=== PATIENT | male | born 1995 | race Caucasian/White ===

== ENCOUNTER 2017-04-14 13:11 | Emergency (ER) | payer OTHER ==
[~2017-04-14] VITALS: Ht 188 cm; Wt 90.4 kg
[~2017-04-14 13:11] MED LIST: ALBU1AER9 INH; BUDESUS; CHOL100027 PO; EPIN1INJ33 IM; EPP3/2 IM; SYMIN160 INH
[2017-04-14 13:21] VITALS: TEMP 36.5; Ht 188 cm; Wt 90.4 kg
[2017-04-14] MEDS ORDERED: METH20CA PO (14:40)
[2017-04-14] MEDS ORDERED: VNTHFA/IN INH (14:40)
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
[2017-04-14 16:07] VITALS: BP 156/103; PULSE 82; O2SAT 94
--- NOTE | 2017-04-14 16:40 | DIAGNOSTIC IMAGING REPORT ---
NASAL BONES MIN 3 VIEWS CLINICAL HISTORY: 22 years-old Male presenting with Right nose trauma. TECHNIQUE: 3 views of the nasal bones were obtained. COMPARISON: None. FINDINGS: Bony nasal septum midline. Paranasal sinuses and mastoid air cells grossly clear. Bony orbits intact. Mild asymmetric synchondrosis in the right nasal bone raises concern for fracture. Left nasal bone intact. IMPRESSION: Concern for mildly displaced right nasal bone fracture. Electronically signed by: Mark Abreu M.D. 04/14/2017 4:39 PM Dictated Date/Time: 04/14/2017 4:37 PM
[2017-04-17] MEDS ORDERED: CLR10 PO (10:18)
[2017-04-17] MEDS ORDERED: VITA1TAB4 PO (10:18)
[2017-04-17] MEDS ORDERED: MULT-506 PO (10:18)
[2017-04-17] MEDS ORDERED: ALBU18002 INH (10:18)
[2017-04-17] MEDS ORDERED: [UNRECOGNIZED DRUG - OTHER] IM (10:19)
== END 2017-04-14 16:07 | disposition home or self-care (01) ==
LOC: C.EDB 13:13 → C.EDD 16:07
DX: S02.2XXA Fracture of nasal bones, initial encounter for closed fracture (principal); X58.XXXA Exposure to other specified factors, initial encounter; J45.909 Unspecified asthma, uncomplicated; Z79.899 Other long term (current) drug therapy; Z91.010 Allergy to peanuts

== ENCOUNTER → 2017-04-19 | Day surgery (SDC) | payer OTHER ==
[2017-04-17 10:20] VITALS: Ht 186.7 cm; Wt 90.9 kg
[~2017-04-19] VITALS: Ht 186.7 cm; Wt 90.9 kg
[~2017-04-19] MED LIST changes: +ALBU18002 INH; -ALBU1AER9 INH; +ATROPINE SULFATE 0.1 MG/ML 5ML SYR IV PRN; -BUDESUS; +CLR10 PO; +DEXAMETHASONE SOD INJ 4 MG/ML VIAL ONE; -EPIN1INJ33 IM; -EPP3/2 IM; +EpHEDrine SULFATE INJ 50 MG/ML AMP IV PRN; +EpINEphrine INJ 1MG/ML AMP 1 MG/ML AMP ONE; +FENTANYL CITRATE INJ 50 MCG/1 ML 2 ML VIAL IV PRN; +FENTANYL CITRATE INJ 50 MCG/1 ML 2 ML VIAL ONE; +FLUMAZENIL 0.1 MG/1 ML 10 ML VIAL IV PRN; +HYDROCODONE/ACETAMOPHEN 5/325MG TAB PO PRN; +HYDROmorphone INJ 2 MG/ML SYR/VIAL IV PRN; +LABETALOL HCL IV 5 MG/ML 20ML IV PRN; +LACTATED RINGER'S 1000ML 1,000 ML IV SCH; +LIDOCAINE 4% MPF SOAK 5 ML = 1 DOSE TOP ONE; +LIDOCAINE HCL 2% 2 ML VIAL (20MG/ML) ONE; +LIDOCAINE/EPINEPHRINE 1% INJ 50 ML VIAL ONE; +MEPERIDINE HCL 25 MG/ML CARP IV PRN; +METH20CA PO; +MIDAZOLAM HCL 1 MG/ML 2ML VIAL ONE; +MULT-506 PO; +NALOXONE HCL 0.4 MG/1 ML VIAL/CARP IV PRN; +ONDANSETRON INJ 2 MG/ML 2 ML VIAL IV PRN; +ONDANSETRON INJ 2 MG/ML 2 ML VIAL ONE; +OXYMETAZOLINE HCL 0.05% NA SPR 15 ML BTL PRN; +PHENYLEPHRINE 100MCG/ML 5ML SYR IV PRN; +PROPOFOL IV EMULSION 10 MG/ML 20 ML VIAL IV ONE; +SUCCINYLCHOLINE CHLORIDE 20 MG/ML 10 ML VIAL IV ONE; +VITA1TAB4 PO; +[UNRECOGNIZED DRUG - OTHER] IM
--- NOTE | 2017-04-19 06:40 | History & Physical Bridge - SC ---
H&P Re-Evaluation Bridge Note: I have examined the patient, reviewed the History & Physical and in the interval since the performance of the History & Physical I have noted the following changes of clinical significance: No changes noted
--- NOTE | 2017-04-19 08:45 | [facility] Operative Report ---
Operative Report Operative Date Apr 19, 2017. Pre-Operative Diagnosis NASAL FRACTURE Post-Operative Diagnosis SAME ABOVE Procedure(s) Performed CLOSED REDUCTION OF NASAL FRACTURE WITH STABILIZATION Surgeon NICKI Stable Manager Surgeon(s) NONE Estimated Blood Loss 0ML Findings DEPRESSED LEFT AND ELEVATED RIGHT NASAL BONE FRACTURES WITH RIGHTWARD DEVIATION OF THE NASAL DORSUM Specimens NONE I attest to the content of the Intraoperative Record and any orders documented therein. Any exceptions are noted below.
--- NOTE | 2017-04-19 08:47 | Discharge Instructions ---
Discharge Instructions Date of Service Apr 19, 2017. Admission Reason for Admission: Nasal Fracture Discharge Discharge Diagnosis / Problem: SAME Discharge Goals Goal(s): Therapeutic intervention Activity Recommendations Activity Limitations: as noted below 1. KEEP NASAL SPLINT DRY UNTIL FOLLOW UP APPOINTMENT 2. LIGHT ACTIVITY FOR 1 WEEK 3. AVOID CONTACT SPORTS FOR 4-6 WEEKS IF POSSIBLE 4. NO DRIVING WHILE ON [place] . Current Hospital Diet Patient's current hospital diet: Discharge Diet Recommended Diet: Regular Diet Procedures Procedures Performed: CLOSED REDUCTION OF NASAL FRACTURE WITH STABILIZATION Pending Studies Studies pending at discharge: no Medical Emergencies . Who to Call and When: Medical Emergencies: If at any time you feel your situation is an emergency, please call 911 immediately. . Non-Emergent Contact Non-Emergency issues call your: Surgeon . . "Provider Documentation" section prepared by Chris Starr. . VTE Core Measure Inpt VTE Proph given/why not?: SCD's
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
--- NOTE | 2017-04-19 09:12 | Anesthesia Progress Nt - [facility] ---
Anesthesia Post Op Note Date & Time Apr 19, 2017 at 09:12 Vital Signs Pain Intensity: 4 Vital Signs Past 12 Hours Date Time Temp Pulse Resp B/P (MAP) Pulse Ox O2 Delivery O2 Flow Rate FiO2 04/19/17 08:55 37.0 100 16 132/93 100 Humidified Oxygen 6 Mask 04/19/17 06:36 36.6 65 16 128/85 (99) 100 Room Air Notes Mental Status: alert / awake / arousable, participated in evaluation Pt Amnestic to Procedure: Yes Nausea / Vomiting: adequately controlled Pain: adequately controlled Airway Patency, RR, SpO2: stable & adequate BP & HR: stable & adequate Hydration State: stable & adequate Anesthetic Complications: no major complications apparent
[2017-04-19 09:26] VITALS: TEMP 36.8
[2017-04-19 09:53] VITALS: BP 143/87; PULSE 66; O2SAT 100
== END | disposition home or self-care (01) ==
LOC: X.SURG 06:21
DX: S02.2XXA Fracture of nasal bones, initial encounter for closed fracture (principal); W50.0XXA Accidental hit or strike by another person, initial encounter; Y93.72 Activity, wrestling

== ENCOUNTER 2017-10-19 10:55 | Emergency (ER) | payer OTHER ==
[~2017-10-19] VITALS: Ht 208.3 cm; Wt 94.5 kg
[~2017-10-19 10:55] MED LIST changes: -ATROPINE SULFATE 0.1 MG/ML 5ML SYR IV PRN; -DEXAMETHASONE SOD INJ 4 MG/ML VIAL ONE; -EpHEDrine SULFATE INJ 50 MG/ML AMP IV PRN; -EpINEphrine INJ 1MG/ML AMP 1 MG/ML AMP ONE; -FENTANYL CITRATE INJ 50 MCG/1 ML 2 ML VIAL IV PRN; -FENTANYL CITRATE INJ 50 MCG/1 ML 2 ML VIAL ONE; -FLUMAZENIL 0.1 MG/1 ML 10 ML VIAL IV PRN; -HYDROCODONE/ACETAMOPHEN 5/325MG TAB PO PRN; -HYDROmorphone INJ 2 MG/ML SYR/VIAL IV PRN; -LABETALOL HCL IV 5 MG/ML 20ML IV PRN; -LACTATED RINGER'S 1000ML 1,000 ML IV SCH; -LIDOCAINE 4% MPF SOAK 5 ML = 1 DOSE TOP ONE; -LIDOCAINE HCL 2% 2 ML VIAL (20MG/ML) ONE; -LIDOCAINE/EPINEPHRINE 1% INJ 50 ML VIAL ONE; -MEPERIDINE HCL 25 MG/ML CARP IV PRN; -MIDAZOLAM HCL 1 MG/ML 2ML VIAL ONE; -NALOXONE HCL 0.4 MG/1 ML VIAL/CARP IV PRN; -ONDANSETRON INJ 2 MG/ML 2 ML VIAL IV PRN; -ONDANSETRON INJ 2 MG/ML 2 ML VIAL ONE; -OXYMETAZOLINE HCL 0.05% NA SPR 15 ML BTL PRN; -PHENYLEPHRINE 100MCG/ML 5ML SYR IV PRN; -PROPOFOL IV EMULSION 10 MG/ML 20 ML VIAL IV ONE; -SUCCINYLCHOLINE CHLORIDE 20 MG/ML 10 ML VIAL IV ONE
[2017-10-19 10:58] VITALS: TEMP 36.7; Ht 208.3 cm; Wt 94.5 kg
[2017-10-19] MEDS ORDERED: EPP3/2 IM (11:23)
[2017-10-19] MEDS ORDERED: CETI10TA84 PO (11:23)
--- NOTE | 2017-10-19 11:23 | DIAGNOSTIC IMAGING REPORT ---
CHEST ONE VIEW PORTABLE CLINICAL HISTORY: Fever, sepsis. COMPARISON STUDY: No previous studies for comparison. FINDINGS: The cardiac and mediastinal contours are normal. There is no evidence of focal pulmonary consolidation. There is no evidence of failure. No pleural effusions are visualized.[ IMPRESSION: No active disease in the chest. Electronically signed by: Jay Sosa M.D. 10/19/2017 11:21 AM Dictated Date/Time: 10/19/2017 11:21 AM
--- NOTE | 2017-10-19 11:49 | EMERGENCY ROOM VISIT NOTE ---
History Report prepared by Domingoibindy: Jon Baker Under the Supervision of: Alberta DubonO. First contact with patient: 11:15 Chief Complaint: CHEST PAIN Stated Complaint: CHEST PAIN History of Present Illness The patient is a 22 year old male who presents to the Emergency Room with complaints of constant left sided chest tightness that began 4 hours ago rated as 4/10 in severity. He states that prior to arrival, he took Aspirin with minimal improvement. He denies SOB, cough, and leg swelling. He denies recent trauma, travel, illness, and fevers. He denies any significant cardiac history. Source of History: patient Onset: 4 hours ago Position: chest (left) Symptom Intensity: pain rated as 4/10 Quality: other (tightness) Timing: constant Associated Symptoms: + chest pain, No fevers, No cough, No SOB Review of Systems See HPI for pertinent positives & negatives. A total of 10 systems reviewed and were otherwise negative. Past Medical & Surgical Medical Problems: (1) Asthma (2) Peanut allergy Surgical Problems: (1) [place] teeth extracted Family History Patient reports no known family medical history. Social History Smoking Status: Never Smoker Alcohol Use: occasionally Housing Status: lives with roommate Occupation Status: [employer] student Current/Historical Medications Scheduled Budesonide/Formoterol Fumarate (Symbicort 160/4.5 Inhaler ), 2 PUFFS INH DAILY- BID Cetirizine (Zyrtec), 10 MG PO DAILY Cholecalciferol (Vitamin D 1000 Unit), 1,000 INTER.UNIT PO DAILY Epinephrine (Epipen), 0.3 MG IM UD Methylphenidate Hcl (Ritalin La), 1 CAP PO QAM Multivitamin (Multivitamin), 1 TAB PO DAILY Vitamin E (Vitamin E), 1 TAB PO DAILY Scheduled PRN Albuterol Sulfate (Proair Respiclick), 2 PUFFS INH Q4-6H PRN for SOB/Wheezing Allergies Coded Allergies: Peanut (Verified Allergy, Severe, ANAPHYLAXIS, 10/19/17) NO KNOWN DRUG ALLERGIES (Verified Allergy, Unknown, ., 04/19/17) Physical Exam Vital Signs Date Time Temp Pulse Resp B/P (MAP) Pulse Ox O2 Delivery O2 Flow Rate FiO2 10/19/17 11:10 86 10/19/17 11:09 98 Room Air 10/19/17 10:58 36.7 84 20 131/73 98 Room Air Physical Exam CONSTITUTIONAL/VITAL SIGNS: Reviewed / noted above. GENERAL: Non-toxic in appearance. INTEGUMENTARY: Warm, dry, and [place]. HEAD: Normocephalic. EYES: without scleral icterus or trauma. ENT/OROPHARYNX: clear and moist. LYMPHADENOPATHY/NECK: Is supple without lymphadenopathy or meningismus. RESPIRATORY: Lungs clear and equal. CARDIOVASCULAR: Regular rate and rhythm. GI/ABDOMEN: Soft and nontender. No organomegaly or pulsatile mass. No rebound or guarding. Normal bowel sounds. EXTREMITIES: Warm and well perfused. BACK: No CVA tenderness. NEUROLOGICAL: Intact without focal deficits. PSYCHIATRIC: normal affect. MUSCULOSKELETAL: Normally developed with good muscle tone. Medical Decision & Procedures ER Provider Diagnostic Interpretation: Radiology results as stated below per my review and radiologist interpretation: CHEST ONE VIEW PORTABLE CLINICAL HISTORY: Fever, sepsis. COMPARISON STUDY: No previous studies for comparison. FINDINGS: The cardiac and mediastinal contours are normal. There is no evidence of focal pulmonary consolidation. There is no evidence of failure. No pleural effusions are visualized.[ IMPRESSION: No active disease in the chest. Electronically signed by: Jay Sosa M.D. 10/19/2017 11:21 AM Dictated Date/Time: 10/19/2017 11:21 AM Laboratory Results Test 10/19/17 11:19 Bedside D-Dimer 75 ng/mlFEU (0-450) Bedside Troponin I < 0.030 ng/ml (0-0.045) Laboratory results as stated above per my review. ECG Per My Interpretation Indication: chest pain Rate (beats per minute): 81 Rhythm: normal sinus Findings: no ectopy, other (No ST elevation) ED Course 1115: Previous medical records were reviewed. The patient was evaluated in room B3. A complete history and physical examination was performed. 1145: On reevaluation, the patient is resting. I discussed the results and findings with the patient. He and his father verbalized agreement of the treatment plan. He was discharged home. Medical Decision the differential was considered includes acute myocardial infarction, acute coronary syndrome, myocarditis, pericarditis, pericardial effusions /tamponade, esophageal perforation, thoracic aortic dissection, pulmonary embolism, pneumonia, pneumothorax, pancreatitis, shingles, acute cholecystitis, perforated abdominal viscus. This is a 22-year-old male who presents to the ED with a chief complaint of left sided chest pain. The patient points to the area just to the left of the sternum over his pectoralis muscle region. The patient states that his symptoms started when he awoke today. He denied any associated symptoms such as shortness of breath, recent illness, fevers. He denies any trauma. Nothing seems to make his symptoms worse or better. He does report a history of asthma but states that this does not feel like his asthma. His vital signs are normal. His physical exam was normal. Chest x-ray was negative for acute disease. EKG shows a sinus rhythm at a rate of 72. D-dimer and troponin are negative. The patient was told the results of the test. I suspect his symptoms are likely musculoskeletal. He is felt to be stable for discharge. Medication Reconcilliation Current Medication List: was personally reviewed by me Blood Pressure Screening Patient's blood pressure: Normal blood pressure Blood pressure disposition: Did not require urgent referral Impression Primary Impression: Left sided chest pain Additional Impression: Non-cardiac chest pain Scribe Attestation The scribe's documentation has been prepared under my direction and personally reviewed by me in its entirety. I confirm that the note above accurately reflects all work, treatment, procedures, and medical decision making performed by me. Departure Information Dispostion Home / Self-Care Referrals [facility] (PCP) Patient Instructions My [facility] Additional Instructions Chest x-ray, EKG and blood work today was normal. Take Tylenol or Motrin as needed for pain. Follow-up with your doctor for further care and evaluation in 1-5 days if symptoms persist. Return to the emergency department for worsening or new symptoms or any concerns. You have been examined and treated today on an emergency basis only. This is not a substitute for, or an effort to provide, complete comprehensive medical care. It is impossible to recognize and treat all injuries or illnesses in a single emergency department visit. It is therefore important that you follow up closely with your doctor. Call as soon as possible for an appointment. Problem Qualifiers
[2017-10-19 11:57] VITALS: BP 154/74; PULSE 82; O2SAT 99
== END 2017-10-19 11:58 | disposition home or self-care (01) ==
LOC: C.EDB 10:56
DX: R07.9 Chest pain, unspecified (principal); R07.89 Other chest pain; J45.909 Unspecified asthma, uncomplicated; Z91.010 Allergy to peanuts